=== PATIENT | male | born 1960 | race Hispanic/Latino ===

== ENCOUNTER 2021-03-11 06:17 | Observation (INO) | payer OTHER ==
[~2021-03-11] VITALS: Ht 170.2 cm; Wt 97.5 kg
[2021-03-11] MEDS ORDERED: ASPIRIN 325 MG TABLET ONE (06:23)
[2021-03-11] MEDS ORDERED: NITROGLYCERIN 1GM/1 INCH PACKET TD ONE (06:23)
[2021-03-11 06:40] LABS: BASOPHILS % (AUTO) 0.3 % (0.0-5.0); EOSINOPHILS % (AUTO) 1.4 % (0.0-8.0); HEMATOCRIT 52.1 % (42-54); LYMPHOCYTES % (AUTO) 20.2 % (21.0-51.0); MEAN CORPUSCULAR HEMOGLOBIN 28.3 pg (27.0-33.0); MEAN CORPUSCULAR HGB CONC 33.8 g/dL (32.0-36.0); MEAN CORPUSCULAR VOLUME 83.9 fL (79-99); MONOCYTES % (AUTO) 9.7 % (3.0-13.0); PLATELET COUNT (AUTO) 196 K/uL (130-400); RED BLOOD CELL COUNT(AUTO) 6.21 MIL/uL (4.50-6.20); RED CELL DISTRIBUTION WIDTH 13.6 % (11.0-15.5); WHITE BLOOD COUNT (AUTO) 10.2 K/uL (4.8-10.8)
[2021-03-11 06:55] LABS: INR 0.93 (0.85-1.15); PROTHROMBIN TIME 10.2 SEC (9.6-11.6)
[2021-03-11 06:57] LABS: PARTIAL THROMBOPLASTIN TIME 26.1 SEC (26.3-35.5)
[2021-03-11 07:14] LABS: CREATININE 1.2 mg/dL (0.5-1.5); TOTAL PROTEIN, SERUM 7.8 g/dL (6.0-8.3)
[2021-03-11 09:38] LABS: HEMOGLOBIN A1C 6.5 % (4.0-6.0)
[2021-03-11] MEDS ORDERED: ACETAMINOPHEN 325 MG TAB PO PRN ×2 (09:45)
[2021-03-11] MEDS ORDERED: MAG HYDROX/AL HYDROX/SIMETH ES 30 ML SUSP UDCUP PO PRN (09:45)
[2021-03-11] MEDS ORDERED: GUAIFENESIN-DM 200/20 MG 10 ML PO PRN (09:45)
[2021-03-11] MEDS ORDERED: LACTULOSE 20 GM/30 ML UDCUP PO PRN (09:45)
[2021-03-11] MEDS ORDERED: LACTATED RINGERS 1000ML 1,000 ML IV SCH (09:45)
[2021-03-11] MEDS ORDERED: ONDANSETRON HCL 4 MG/2 ML VIAL IV PRN (09:45)
[2021-03-11] MEDS ORDERED: NITROGLYCERIN 0.4 MG SL TAB SL PRN (09:45)
[2021-03-11] MEDS ORDERED: LIDOCAINE HCL 2% VISCOUS 30 ML, MAG HYDROX/AL HYDROX/SIMETH 30 ML, BELLADONNA-PHENOBARB... PO PRN ×3 (10:00)
[2021-03-11] MEDS ORDERED: LACTATED RINGERS 1000ML 1,000 ML IV ONE (10:19)
[2021-03-11 10:22] LABS: AMPHET/METH SCREEN,URINE NEGATIVE (NEGATIVE); BARBITURATE SCREEN, URINE NEGATIVE (NEGATIVE); BENZODIAZEPINES SCREEN,URINE NEGATIVE (NEGATIVE); CANNABINOID SCREEN,URINE NEGATIVE (NEGATIVE); COCAINE SCREEN,URINE NEGATIVE (NEGATIVE); OPIATE SCREEN,URINE NEGATIVE (NEGATIVE); PHENCYCLIDINE SCREEN,URINE NEGATIVE (NEGATIVE)
[2021-03-11 10:30] LABS: TROPONIN I 0.05 ng/mL (0.00-0.06)
[2021-03-11] MEDS: FAMOTIDINE/PF 20 MG/2 ML VIAL IV SCH ×2 (11:02→21:37)
[2021-03-11] MEDS: ASPIRIN 325 MG TABLET PO SCH (11:03)
[2021-03-11] MEDS ORDERED: ENOXAPARIN SODIUM 40 MG/0.4 ML SYRINGE SQ SCH (11:03)
[2021-03-11 16:30] VITALS: BP 153/78
[2021-03-11 17:13] LABS: TROPONIN I 0.06 ng/mL (0.00-0.06)
[2021-03-11] MEDS ORDERED: PRASUGREL HCL 10 MG TABLET PO SCH (18:00)
[2021-03-11] MEDS ORDERED: ASPIRIN 325MG EC TAB 325 MG TABLET.DR PO SCH (18:00)
[2021-03-11] MEDS ORDERED: SODIUM CHLORIDE 0.9% 500ML 500 ML IV SCH (18:00)
[2021-03-11] MEDS: LOSARTAN 100 MG TABLET PO SCH (18:33)
[2021-03-11] MEDS: AMLODIPINE BESYLATE 5 MG TAB PO SCH (18:33)
[2021-03-11] MEDS: NITROGLYCERIN 1GM/1 INCH PACKET TD SCH (18:33)
[2021-03-11] MEDS ORDERED: ATEN100T PO (18:47)
[2021-03-11] MEDS ORDERED: VALS320T16 PO (18:47)
[2021-03-11] MEDS ORDERED: LOVA10TA2 PO (18:47)
[2021-03-11] MEDS ORDERED: METF-446 PO (18:47)
[2021-03-11] MEDS ORDERED: EMPA25TA PO (18:47)
[2021-03-11] MEDS ORDERED: AMLO-258 PO (18:47)
[2021-03-11 19:56] VITALS: BP 124/67
[2021-03-11] MEDS ORDERED: ATORVASTATIN CALCIUM 20 MG TABLET PO SCH (21:00)
[2021-03-11] MEDS ORDERED: METOPROLOL TARTRATE 25 MG TAB PO SCH (21:00)
[2021-03-11 21:42] LABS: TROPONIN I 0.06 ng/mL (0.00-0.06)
[2021-03-11 23:47] VITALS: BP 124/82
[2021-03-12] VITALS (11 sets, daily range): BP systolic 107–158; BP diastolic 65–89
[2021-03-12] MEDS: NITROGLYCERIN 1GM/1 INCH PACKET TD SCH ×3 (00:44→11:37)
[2021-03-12 03:50] LABS: BASOPHILS % (AUTO) 0.3 % (0.0-5.0); EOSINOPHILS % (AUTO) 1.1 % (0.0-8.0); HEMATOCRIT 45.3 % (42-54); MEAN CORPUSCULAR HEMOGLOBIN 28.1 pg (27.0-33.0); MEAN CORPUSCULAR HGB CONC 33.6 g/dL (32.0-36.0); MEAN CORPUSCULAR VOLUME 83.9 fL (79-99); MONOCYTES % (AUTO) 11.3 % (3.0-13.0); PLATELET COUNT (AUTO) 188 K/uL (130-400); RED CELL DISTRIBUTION WIDTH 13.3 % (11.0-15.5); WHITE BLOOD COUNT (AUTO) 9.2 K/uL (4.8-10.8)
[2021-03-12 04:03] LABS: ALBUMIN 3.3 g/dL (3.5-5.0); BILIRUBIN,TOTAL 1.4 mg/dL (0.2-1.0); CREATININE 1.2 mg/dL (0.5-1.5); POTASSIUM 3.6 mmol/L (3.5-5.1); TOTAL PROTEIN, SERUM 6.5 g/dL (6.0-8.3)
[2021-03-12] MEDS ORDERED: IOHEXOL 350 MG/ML 100ML INFUS..BTL IV ONE (07:15)
[2021-03-12] MEDS ORDERED: BIVALIRUDIN 250 MG/VIAL IV ONE (07:15)
[2021-03-12] MEDS ORDERED: IOHEXOL-350 75 ML VIAL IV ONE (07:15)
[2021-03-12] MEDS ORDERED: MIDAZOLAM HCL 1 MG/ML 2ML VIAL ONE (07:15)
[2021-03-12] MEDS ORDERED: NITROGLYCERIN 2 MG/VIAL VIAL IV ONE (07:15)
[2021-03-12] MEDS ORDERED: IOHEXOL-350 50ML VIAL IV ONE (07:15)
[2021-03-12] MEDS ORDERED: FENTANYL CITRATE PF 50 MCG/1 ML 2ML VIAL ONE (07:16)
[2021-03-12] MEDS ORDERED: LIDOCAINE HCL 400MG/20ML VIAL ONE (07:16)
[2021-03-12] MEDS ORDERED: HYDRALAZINE HCL 20 MG/ML VIAL IV PRN (08:00)
[2021-03-12] MEDS ORDERED: METOPROLOL TARTRATE 1 MG/ML 5ML VIAL IV PRN (08:00)
[2021-03-12] MEDS ORDERED: SODIUM CHLORIDE 0.9% 1000ML 1,000 ML IV SCH (08:00)
[2021-03-12] MEDS ORDERED: NITROGLYCERIN 0.4 MG SL TAB SL PRN (08:00)
[2021-03-12] MEDS ORDERED: MAGNESIUM 2GM PREMIX 50ML 50 ML IV SCH (08:30)
[2021-03-12] MEDS: AMLODIPINE BESYLATE 5 MG TAB PO SCH (08:54)
[2021-03-12] MEDS: ASPIRIN 325 MG TABLET PO SCH (08:54)
[2021-03-12] MEDS: FAMOTIDINE/PF 20 MG/2 ML VIAL IV SCH (08:54)
[2021-03-12] MEDS: LOSARTAN 100 MG TABLET PO SCH (08:54)
[2021-03-12] MEDS ORDERED: ASPIRIN 81 MG EC TAB PO SCH (09:00)
[2021-03-12] MEDS ORDERED: PRASUGREL HCL 10 MG TABLET PO SCH (09:00)
== END 2021-03-12 16:56 | disposition home or self-care (01) ==
LOC: EDH 06:17 → EDHIP 09:36 → INTOOBSV 09:36 → 4DH 16:32
PROVIDERS: ADMIT Family Medicine; ATTEND Family Medicine
DX: I25.110 Atherosclerotic heart disease of native coronary artery with unstable angina pectoris (principal); I11.0 Hypertensive heart disease with heart failure; I50.31 Acute diastolic (congestive) heart failure; E78.5 Hyperlipidemia, unspecified; E11.9 Type 2 diabetes mellitus without complications; E66.01 Morbid (severe) obesity due to excess calories; Z79.82 Long term (current) use of aspirin; Z79.899 Other long term (current) drug therapy; Z68.33 Body mass index [BMI] 33.0-33.9, adult
CPT/HCPCS: 36415 ×2; 71045; 80053 ×2; 80305; 82550 ×4; 82948 ×2; 83036; 83690; 83874 ×3; 83880; 84484 ×4; 85025 ×2; 85378; 85610; 85730; 87338; 93005 ×5; 93458; 96372; 96374; 96376; 99285; C1760; C1894 ×2; G0378 ×31; J1644; J1650; J2250; J3010; J3490 ×4; J7120; Q9965; Q9967 ×2; 99156; 99157; J0583